=== PATIENT | female | born 2000 | race Caucasian/White ===

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

== ENCOUNTER 2022-03-27 14:02 | Outpatient (CLI) | payer OTHER, SELFPAY ==
--- NOTE | ~2022-03-27 | US_ITS ---
EXAMINATION: US pelvic complete w TV DATE: 03/27/2022 15:04 INDICATION: Vaginal bleeding Comparison:No prior studies for comparison. TECHNIQUE: Multiple transabdominal and endovaginal sonographic images of the pelvis performed. FINDINGS: The uterus measures 5.9 x 4 x 2.6 cm. The endometrial complex measures 0.45 cm. No evidence for intrauterine . There are nabothian cysts. The right ovary measures 2.6 x 1.2 x 1.9 cm and the left ovary measures 2.3 x 1.6 x 0.9 cm. There ar e small follicles in each ovary. Normal doppler signal in both ovaries. There is no free fluid in the pelvis. There are no abnormal masses seen on either side. IMPRESSION: 1. Unremarkable pelvic ultrasound. No evidence for intrauterine . Recommend follow-up with q uantitative beta-hCG levels and ultrasound as clinically indicated. Reviewed, dictated and finalized at location A. IMPRESSION: 1. Unremarkable pelvic ultrasound. No evidence for intrauterine . Fausto mmend follow-up with quantitative beta-hCG levels and ultrasound as clinically indicated.
[2022-03-27 14:27] LABS: Basophils Absolute Auto 0.04 K/mm3 (0.00-0.10); Basophils Percent Auto 0.6 % (0.0-1.0); Eosinophils Absolute Auto 0.06 K/mm3 (0.02-0.50); Eosinophils Percent Auto 0.8 % (1.0-6.0); Hematocrit 39.7 % (35.0-49.0); Hemoglobin 12.9 g/dL (12.0-15.0); Immature Granulocyte Absolute 0.02 K/mm3 (0.00-0.00); Immature Granulocyte Percent A 0.3 % (0.0-0.0); Lymphocytes Absolute Auto 1.79 K/mm3 (1.10-4.50); Lymphocytes Percent Auto 25.1 % (18.0-42.0); Mean Corpuscular HGB Conc 32.5 g/dL (32.0-36.0); Mean Corpuscular Hemoglobin 28.7 pg (27.0-31.0); Mean Corpuscular Volume 88.2 fL (78.0-102.0); Mean Platelet Volume 10.6 fl (9.2-11.8); Monocytes Absolute Auto 0.44 K/mm3 (0.10-0.90); Monocytes Percent Auto 6.2 % (2.0-11.0); Neutrophils Absolute Auto 4.8 K/mm3 (1.7-7.2); Platelet Count Result 357 K/mm3 (150-420); Red Cell Distribution Width 12.6 % (11.6-14.4); White Blood Count 7.1 K/mm3 (4.8-10.8)
[2022-03-27 14:51] LABS: Alanine Aminotransferase 12 U/L (14-59); Albumin Level 4.1 g/dL (3.4-5.0); Alkaline Phosphatase 58 U/L (46-116); Anion Gap 10 mmol/L (8-16); Aspartate Amino Transferase 14 U/L (15-37); Bilirubin,Total 0.5 mg/dL (0.00-1.00); Blood Urea Nitrogen 14 mg/dL (7-18); Calcium 8.9 mg/dL (8.5-10.1); Carbon Dioxide 25 mmol/L (21-32); Chloride 103 mmol/L (98-108); Estimated Glomerular Filt Rate > 60; Glucose 114 mg/dL (70-99); Osmolality Calculated 287 mOsm/kg (285-295); Sodium 138 mmol/L (136-145); Total Protein 7.9 g/dL (6.4-8.2)
== END 2022-03-27 14:03 | disposition home or self-care (01) ==
LOC: CHSIMG 14:05
PROVIDERS: PCP Internal Medicine; Visit Provider Nurse Practitioner Family
DX: N91.2 Amenorrhea, unspecified (principal); Z32.01 Encounter for pregnancy test, result positive; N93.9 Abnormal uterine and vaginal bleeding, unspecified
CPT/HCPCS: 36415; 76830; 76856; 80053; 84702; 85025; 86850; 86900; 86901

== ENCOUNTER 2022-04-02 15:25 | Outpatient (CLI) | payer OTHER, SELFPAY | END 2022-04-02 15:26 | disposition home or self-care (01) | PROVIDERS: PCP Internal Medicine; Visit Provider Obstetrics & Gynecology | DX: O20.0 Threatened abortion (principal); Z3A.00 Weeks of gestation of pregnancy not specified | CPT/HCPCS: 36415; 84702 ==

== ENCOUNTER 2022-04-04 09:31 | Outpatient (CLI) | payer OTHER, SELFPAY | END 2022-04-04 09:32 | disposition home or self-care (01) | PROVIDERS: PCP Internal Medicine; Visit Provider Obstetrics & Gynecology | DX: O20.0 Threatened abortion (principal) | CPT/HCPCS: 36415; 84702 ==

== ENCOUNTER 2022-04-06 14:40 | Emergency (ER) | payer OTHER, SELFPAY ==
--- NOTE | ~2022-04-06 | US_ITS ---
US OB <=14 wk fetus w TV 04/06/2022 17:55 Indication: Vaginal bleeding. Possible 6 week . Procedure: Realtime pelvic ultrasound utilizing transabdominal and transvaginal ultrasound Comparison: 03/27/2022 Findings: Uterus measures 7.1 x 3.1 x 4.1 cm. No definitive intrauterine gestational sac is identifie d. There is fluid in the endometrium which contains debris. No definite yolk sac or fluid the renal p ole is seen. The ovaries are unremarkable. Right ovary measures 3.6 x 1.4 x 1.5 cm. Left ovary measur es 2.7 x 1.2 x 1.2 cm. Endometrium is thickened. No free fluid in the pelvis. There is a small hypoec hoic structure at the fundus of the uterus measuring up to 1.3 cm, possibly a fibroid. Impression: 1: Fluid and debris containing focally in the endometrium without definitive gestational sac, yolk sa c or pole. Differential diagnosis includes very early intrauterine , failed and ectopic . Recommend follow-up with serial quantitative beta-hCG levels and ultrasound as clinically indicated. Reviewed, dictated and finalized at location A. Impression: 1: Fluid and debris containing focally in the endometrium without definitive ge stational sac, yolk sac or pole. Differential diagnosis includes very ear ly intrauterine , failed and ectopic . Recommend fo llow-up with serial quantitative beta-hCG levels and ultrasound as clinically i ndicated.
[2022-04-06 14:43] VITALS: BP 133/68; PULSE 99; RESP 16; TEMP 36.8; O2SAT 100
[2022-04-06 14:51] VITALS: O2SAT 100
[2022-04-06 14:52] VITALS: BP 139/62; O2SAT 100
[2022-04-06 14:56] VITALS: BP 139/62; PULSE 92; RESP 15; O2SAT 100
[2022-04-06 15:20] LABS: Basophils Percent Auto 0.4 % (0.2-1.2); Eosinophils Absolute Auto 0.1 K/mm3 (0-0.3); Eosinophils Percent Auto 1.3 % (0-4.4); Hematocrit 35.2 % (37.0-47.0); Hemoglobin 11.5 g/dL (12.0-15.0); Immature Granulocyte Absolute 0.02 K/mm3 (0.00-0.031); Immature Granulocyte Percent A 0.3 % (0-0.5); Lymphocytes Absolute Auto 2.15 K/mm3 (0.9-3.2); Lymphocytes Percent Auto 32.1 % (18.3-44.2); Mean Corpuscular HGB Conc 32.7 g/dl (32-36); Mean Corpuscular Hemoglobin 28.8 pg (26-34); Mean Corpuscular Volume 88.2 fl (80-100); Mean Platelet Volume 10.7 fl (7.4-10.4); Monocytes Absolute Auto 0.4 K/mm3 (0.1-0.6); Monocytes Percent Auto 6.3 % (2.6-8.5); Neutrophils Percent Auto 59.6 % (45.5-73.1); Platelet Count Result 318 k/mm3 (150-375); Red Blood Count 3.99 M/mm3 (4.2-5.4); Red Cell Distribution Width 12.9 % (11.5-14.5); White Blood Count 6.7 K/mm3 (4.5-10.0)
[2022-04-06 15:33] LABS: Appearance Urine Clear (Clear); Bilirubin Urine Negative (Negative); Blood Urine 3+ (Negative); Color Urine Yellow (Yellow); Glucose Urine UA Negative (Negative); Ketones Urine Trace mg/dL (Negative); Leukocyte Esterase Ur 1+ LEU/UL (Negative); Nitrate Urine Negative (Negative); Protein Urine Negative (Negative); Specific Grav Ur 1.015 (1.001-1.035); Urobilinogen Urine 0.2 mg/dL (<2.0); pH Urine 6.5 (5.0-9.0)
[2022-04-06 15:35] LABS: Alanine Aminotransferase 16 U/L (6-35); Albumin Level 4.4 g/dL (3.5-5.1); Alkaline Phosphatase 55 U/L (38-126); Anion Gap 6 mmol/L (8-16); Aspartate Amino Transferase 24 U/L (14-36); Bilirubin,Total 0.5 mg/dL (0.2-1.3); Blood Urea Nitrogen 9 mg/dL (7-17); Calcium 8.7 mg/dL (8.4-10.2); Carbon Dioxide 23 mmol/L (22-30); Chloride 106 mmol/L (98-107); Estimated CRCL calculation 82 ml/min; Estimated Glomerular Filt Rate > 60; Glucose 91 mg/dL (65-110); Potassium 3.8 mmol/L (3.4-5.0); Sodium 135 mmol/L (137-145)
[2022-04-06 15:38] LABS: Bacteria Urine Trace /hpf; Squamous Epithelial Cell Urine Occasional /hpf (Few)
[2022-04-06 15:39] LABS: Add Urine Microscopic? YES
--- NOTE | 2022-04-06 15:56 | ED.PREGNANCY ---
HPI - General Chief complaint: Vaginal Bleeding <Meenu Liao PA-C - Last Filed: 04/06/22 19:00> Stated complaint: 6-7 weeks preg and bleeding <JURGEN Cota Last Filed: 04/06/22 19:00> Time Seen by Provider: 04/06/22 14:55 <JURGEN Cota Last Filed: 04/06/22 19:00> Source: patient <JURGEN Cota Last Filed: 04/06/22 19:00> Mode of arrival: ambulatory <JURGEN Cota Last Filed: 04/06/22 19:00> Limitations: no limitations <JURGEN Cota Last Filed: 04/06/22 19:00> History of Present Illness HPI Narrative: Patient is a 21 y/o female who presents to the ED with c/o vaginal bleeding. Patient is and currently approx 5-6 weeks gestation based on LNMP. She has been having issues with intermittent vaginal spotting over the last 2 weeks. She was seen at [place] ED on 03/27 at which point her beta hCG was 120. Pelvic ultrasound did not reveal any intrauterine findings. Patient was seen at [facility] ED in [facility] on 03/31 and had another ultrasound performed. She reports they did see an intrauterine yolk sac but no pole yet. Per records, beta-hCG on 04/02 was 1299 and 2577 on the 13. Patient reports having increased vaginal bleeding today, with clots, which prompted her presentation to the ED. She has not seen her [facility] yet but has an appointment with Dr. Levy on 04/16. She has had some lower abdominal cramping, but no significant pain. Nausea but no vomiting. No fevers, chills, urinary symptoms. <JURGEN Cota Last Filed: 04/06/22 19:00> Related Data Home medications: Home Medications Medication Instructions Recorded Confirmed vits no.130-ferrous fum 1 tablet DAILY 04/06/22 04/06/22 27 mg iron-folic acid 800 mcg tablet ( Vitamin) <JURGEN Cota Last Filed: 04/06/22 19:00> Allergies/Adverse reactions: Allergies Allergy/AdvReac Type Severity Reaction Status Date / Time No Known Allergies Allergy Verified 04/06/22 15:02 <Meenu Liao PA-C - Last Filed: 04/06/22 19:00> Review of Systems Review of Systems: CONSTITUTIONAL: Denies fever, chills, or sweats. CARDIOVASCULAR: Denies chest pain. RESPIRATORY: Denies dyspnea. GASTROINTESTINAL: Reports lower ABD cramping, nausea. Denies vomiting, or diarrhea. GENITOURINARY: Reports vaginal bleeding w/ clots. Denies dysuria or hematuria. SKIN: Denies rash or itching. MUSCULOSKELETAL: Denies back pain. <Meenu Liao PA-C - Last Filed: 04/06/22 19:00> All systems reviewed & are unremarkable except as noted in HPI and below <Meenu Liao PA-C - Last Filed: 04/06/22 19:00> [facility] Past Medical History Medical History: Medical History (Updated 04/06/22 @ 18:41 by Meenu Liao PA-C) No pertinent past medical history <Meenu Liao PA-C - Last Filed: 04/06/22 19:00> Surgical History Surgical History: Surgical History (Updated 04/06/22 @ 16:08 by Meenu Liao PA-C) No pertinent past surgical history <Meenu Liao PA-C - Last Filed: 04/06/22 19:00> Social History Social History: Social History (Updated 04/06/22 @ 16:08 by Meenu Liao PA-C) Smoking status: Never smoker <Meenu Liao PA-C - Last Filed: 04/06/22 19:00> Exam Narrative: GENERAL: Well appearing, well-nourished, non-toxic, in no acute distress. HEAD: Normocephalic, atraumatic. NECK: Supple. No adenopathy, no masses. RESPIRATORY: Airway patent, respirations nonlabored. Clear to auscultation bilaterally, no rales, rhonchi, wheezing. CARDIOVASCULAR: Regular rate and rhythm without murmurs, rubs, or gallops. Peripheral pulses 2+ and equal bilaterally. ABDOMINAL: Soft, no significant tenderness to palpation, nondistended, no hepatosplenomegaly. Normoactive BS. PELVIC: Normal external genitalia. Dark red bleeding present with several clots in vaginal vault. No pooling of blood or hemorrhaging. Os does n
--- NOTE | 2022-04-06 17:35 | PC.NURSE ---
Pt off floor to radiology.
[2022-04-06 19:28] VITALS: PULSE 71; RESP 18; O2SAT 100
== END 2022-04-06 19:27 | disposition home or self-care (01) ==
PROVIDERS: Physician Assistant; Emergency Provider Emergency Medicine; PCP Internal Medicine
DX: O20.0 Threatened abortion (principal); O26.891 Other specified pregnancy related conditions, first trimester; R82.71 Bacteriuria; Z3A.01 Less than 8 weeks gestation of pregnancy
CPT/HCPCS: 36415; 76801; 76817; 80053; 81001; 84702; 85025; 85461; 87086; 99284

== ENCOUNTER 2022-04-09 14:31 | Outpatient (CLI) | payer OTHER, SELFPAY ==
[2022-04-09 15:23] LABS: Beta HCG Quantitative 647.89 mIU/ML
== END 2022-04-09 14:32 | disposition home or self-care (01) ==
LOC: ANHLAB 14:35
PROVIDERS: PCP Internal Medicine; Visit Provider Obstetrics & Gynecology
DX: O20.0 Threatened abortion (principal); Z3A.00 Weeks of gestation of pregnancy not specified
CPT/HCPCS: 36415; 84702

== ENCOUNTER 2022-06-14 15:27 | Outpatient (CLI) | payer OTHER, SELFPAY ==
[2022-06-14 15:57] LABS: Basophils Absolute Auto 0.03 K/mm3 (0.00-0.10); Basophils Percent Auto 0.4 % (0.0-1.0); Eosinophils Absolute Auto 0.06 K/mm3 (0.02-0.50); Eosinophils Percent Auto 0.9 % (1.0-6.0); Hematocrit 38.3 % (35.0-49.0); Hemoglobin 12.4 g/dL (12.0-15.0); Immature Granulocyte Absolute 0.02 K/mm3 (0.00-0.00); Immature Granulocyte Percent A 0.3 % (0.0-0.0); Lymphocytes Absolute Auto 2.17 K/mm3 (1.10-4.50); Mean Corpuscular HGB Conc 32.4 g/dL (32.0-36.0); Mean Corpuscular Hemoglobin 27.5 pg (27.0-31.0); Mean Corpuscular Volume 84.9 fL (78.0-102.0); Monocytes Absolute Auto 0.39 K/mm3 (0.10-0.90); Monocytes Percent Auto 5.6 % (2.0-11.0); Neutrophils Absolute Auto 4.3 K/mm3 (1.7-7.2); Neutrophils Percent Auto 61.8 % (50.0-70.0); Platelet Count Result 410 K/mm3 (150-420); Red Blood Count 4.51 M/mm3 (4.20-5.40)
[2022-06-14 16:04] LABS: Hemoglobin A1C 5.4 % (<5.7)
[2022-06-14 16:23] LABS: Alanine Aminotransferase 24 U/L (14-59); Albumin Level 4.2 g/dL (3.4-5.0); Alkaline Phosphatase 51 U/L (46-116); Anion Gap 11 mmol/L (8-16); Aspartate Amino Transferase 18 U/L (15-37); Bilirubin,Total 0.6 mg/dL (0.00-1.00); Blood Urea Nitrogen 11 mg/dL (7-18); Calcium 9.1 mg/dL (8.5-10.1); Carbon Dioxide 26 mmol/L (21-32); Chloride 100 mmol/L (98-108); Estimated Glomerular Filt Rate > 60; Free T4 Free Thyroxine 1.14 ng/dL (0.76-1.46); Glucose 91 mg/dL (70-99); Osmolality Calculated 283 mOsm/kg (285-295); Potassium 3.9 mmol/L (3.5-5.1); Sodium 137 mmol/L (136-145); Thyroid Stimulating Hormone 0.88 uIU/mL (0.36-3.74)
[2022-06-17 05:53] LABS: FSH 9.1 mIU/mL (***); LH 4.2 mIU/mL (***); Progesterone 5.3 ng/mL (***)
[2022-06-18 08:23] LABS: Testosterone Total 40 ng/dL (2-45)
[2022-06-21 23:08] LABS: Estrogen 463.5 pg/mL
== END 2022-06-14 15:28 | disposition home or self-care (01) ==
LOC: CHSLAB 15:30
PROVIDERS: PCP Internal Medicine; Visit Provider Nurse Practitioner Family
DX: N93.8 Other specified abnormal uterine and vaginal bleeding (principal); Z32.01 Encounter for pregnancy test, result positive
CPT/HCPCS: 36415; 80053; 82672; 83001; 83002; 83036; 84144; 84403; 84439; 84443; 84702; 85025; 86850; 86900; 86901

== ENCOUNTER 2022-06-16 12:49 | Outpatient (CLI) | payer OTHER, SELFPAY | END 2022-06-16 12:50 | disposition home or self-care (01) | LOC: CHSLAB 12:51 | PROVIDERS: PCP Internal Medicine; Visit Provider Nurse Practitioner Family | DX: N93.8 Other specified abnormal uterine and vaginal bleeding (principal) | CPT/HCPCS: 36415; 84702 ==

== ENCOUNTER 2022-06-19 09:01 | Outpatient (CLI) | payer OTHER, SELFPAY ==
[2022-06-19 10:19] LABS: Beta HCG Quantitative 121.77 mIU/ML
== END 2022-06-19 09:02 | disposition home or self-care (01) ==
LOC: ANHLAB 09:02
PROVIDERS: PCP Internal Medicine; Visit Provider Obstetrics & Gynecology
DX: O02.1 Missed abortion (principal); Z3A.00 Weeks of gestation of pregnancy not specified
CPT/HCPCS: 36415; 84702

== ENCOUNTER 2022-06-29 11:01 | Outpatient (CLI) | payer OTHER, SELFPAY ==
[2022-06-29 11:45] LABS: Beta HCG Quantitative 3.14 mIU/ML
== END 2022-06-29 11:02 | disposition home or self-care (01) ==
LOC: ANHLAB 11:03
PROVIDERS: PCP Internal Medicine; Visit Provider Obstetrics & Gynecology
DX: O02.1 Missed abortion (principal)
CPT/HCPCS: 36415; 84702

== ENCOUNTER 2023-06-06 03:19 | Inpatient (IN) | payer OTHER, SELFPAY ==
[2023-06-06] VITALS (174 sets, daily range): BP systolic 100–146; BP diastolic 45–89; PULSE 56–127; RESP 16–18; TEMP 36.7–37.4; O2SAT 85–100; BMI 33.8
--- NOTE | 2023-06-06 04:06 | LDADM ---
This patient, Gemma Cain, was admitted to Labor/Delivery/Recovery 106 on 06/06/23 at 03:19. Plans for labor, pain management and were discussed with patient. Patient/family oriented to hospital policies and general routines including ID bracelet, bed and alarms, visiting hours, pain management, procedures, bathroom and other care routines, personal items, smoking policy, room service/diet and guest tray routines, infant security routines, and visiting hours. Patient/Family are encouraged to report perceived risks to care and to ask questions if they do not understand what they are told or what they should do. See OBIX for further documentation.
[2023-06-06 04:12] LABS: Basophils Percent Auto 0.3 % (0.2-1.2); Eosinophils Absolute Auto 0.1 K/mm3 (0-0.3); Eosinophils Percent Auto 0.9 % (0-4.4); Hematocrit 28.5 % (37.0-47.0); Hemoglobin 8.8 g/dL (12.0-15.0); Immature Granulocyte Absolute 0.06 K/mm3 (0.00-0.031); Immature Granulocyte Percent A 0.6 % (0-0.5); Lymphocytes Absolute Auto 2.98 K/mm3 (0.9-3.2); Lymphocytes Percent Auto 27.9 % (18.3-44.2); Mean Corpuscular HGB Conc 30.9 g/dl (32-36); Mean Corpuscular Hemoglobin 22.8 pg (26-34); Mean Corpuscular Volume 73.8 fl (80-100); Mean Platelet Volume 11.3 fl (7.4-10.4); Monocytes Absolute Auto 0.6 K/mm3 (0.1-0.6); Monocytes Percent Auto 5.6 % (2.6-8.5); Neutrophils Absolute Auto 6.9 K/mm3 (1.3-6.7); Neutrophils Percent Auto 64.7 % (45.5-73.1); Platelet Count Result 339 k/mm3 (150-375); Red Blood Count 3.86 M/mm3 (4.2-5.4); Red Cell Distribution Width 15.9 % (11.5-14.5); White Blood Count 10.7 K/mm3 (4.5-10.0)
[2023-06-06] MEDS: LACTATED RINGERS 1,000 ML 125 ML IV CONT ×2 (05:13→06:14)
--- NOTE | 2023-06-06 06:23 | WPDANESEPP ---
Anes - Eval Pre Procedure Procedure: labor epidural Date/Time: 06/06/23 06:23 Pre Op Diagnosis: SROM Patient Data Age: 23 Gender: F Height: 1.54 m Weight: 80 kg Last Vital Signs Pulse 71 06/06/23 06:00 BP 131/73 06/06/23 06:00 O2 Del Method Room Air 06/06/23 04:11 Allergies Allergy/AdvReac Type Severity Reaction Status Date / Time No Known Allergies Allergy Verified 06/19/22 08:19 Home Medications Medication Instructions Recorded Confirmed Type prenat.vits,nora,ngy-numd-vbxjp 1 tablet PO DAILY 05/11/23 06/06/23 History Laboratory Tests 06/06/23 04:04 WBC 10.7 H K/mm3 (4.5-10.0) RBC 3.86 L M/mm3 (4.2-5.4) Hgb 8.8 L g/dL (12.0-15.0) Hct 28.5 L % (37.0-47.0) MCV 73.8 L fl (80-100) MCH 22.8 L pg (26-34) MCHC 30.9 L g/dl (32-36) RDW 15.9 H % (11.5-14.5) Plt Count 339 k/mm3 (150-375) MPV 11.3 H fl (7.4-10.4) Immature Gran % (Auto) 0.6 H % (0-0.5) Neut % (Auto) 64.7 % (45.5-73.1) Lymph % (Auto) 27.9 % (18.3-44.2) [place] % (Auto) 5.6 % (2.6-8.5) Eos % (Auto) 0.9 % (0-4.4) Baso % (Auto) 0.3 % (0.2-1.2) Lymph # (Auto) 2.98 K/mm3 (0.9-3.2) [place] # (Auto) 0.6 K/mm3 (0.1-0.6) Eos # (Auto) 0.1 K/mm3 (0-0.3) Baso # (Auto) 0.0 K/mm3 (0.0-0.1) Abs Immat Gran (auto) 0.06 H K/mm3 (0.00-0.031) Absolute Neuts (auto) 6.9 H K/mm3 (1.3-6.7) Absolute Nucleated RBC 0.0 K/mm3 (0.0-0.012) Nucleated RBC % 0.0 % (0.0-0.2) RPR Pending Blood Type B Positive Antibody Screen Negative Patient hx anesthesia problems: none Family hx anesthesia problems: none Results Review: All pre-operative results and documents have been reviewed as part of the pre-operative evaluation. [facility] Past Medical History Medical History (Updated 06/06/23 @ 06:24 by Pooja Ornelas CRNA) Anxiety and depression No pertinent past medical history Obese Surgical History Surgical History No pertinent past surgical history Family History Family History Father Heart disease Social History Social History Smoking status: Never smoker Alcohol intake: current Alcohol use details: 3-4 month Substance use: never Substance use type: does not use Lack of Transportation: No Lack of Food: Never True Current Housing: I Have Housing Concerned About Future Housing: No Difficulty Paying Gas/Electric Bills: No Difficulty Paying for Meds: No Currently Unemployed: No Education: High School Diploma/GED Difficulty w/ Childcare or Family Care: No Living arrangements: other Additional living arrangements comments: single Occupation/Education: occupation 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
[2023-06-06 08:35] LABS: Rapid Plasma Reagin Non-Reactive (NonReactive)
--- NOTE | 2023-06-06 11:47 | WPDOBADMIT ---
Obstetrics - Admit Note Admission Note: record reviewed. No pertinent additions to the history and/or any subsequent changes in the physical findings that are not consistent with the expected course of the were found. pt admitted after srom at home, hx Any-danlos syndrome, non vascular type, anticipate vaginal delivery Additions to the history and/or subsequent changes in the physical findings follow. None.
[2023-06-06] MEDS: OXYTOCIN 30 UNITS/NS 500 ML 30 UNITS/500 ML BAG IV CONT (12:00)
--- NOTE | 2023-06-06 15:43 | PM.OBPRVD ---
OB - Delivery Note Procedure Delivery date: 06/06/23 Procedure: Induction method: None Delivery augmentation: Pitocin Delivery monitor: External FHT and External Uterine Route of delivery: Laceration Description: Perineal - 2nd Degree Delivery repair: vicryl Specimen: No Quantitative Blood Loss (ml): 300 Anesthesia type: Epidural Disposition: Floor Baby Date of : 06/06/23 Time of : 15:26 Weeks of gestation at delivery: 39 gender: Male presentation: vertex position: Left Occiput Anterior Placenta delivery description: Spontaneous Cord Vessel Description: 3 Vessels, True Knot and Clamped/Cut score one minute: 7 score five minutes: 9 Narrative: head delivered slowly, unable to deliver the anterior shoulder, small amount of suprapubic pressure applied and easily delivered, the rest of the baby followed, baby moving all extremities. mother and baby skin to skin and in stable condition
[2023-06-06] MEDS: OXYTOCIN 30 UNITS/NS 500 ML 30 UNITS/500 ML BAG 125 UNITS IV CONT (16:05)
[2023-06-06] MEDS: IBUPROFEN 600 MG TABLET PO (18:42)
[2023-06-06] MEDS: WITCH HAZEL 40 PADS 1 PAD TOPICAL (18:43)
[2023-06-06] MEDS: BENZOCAINE 20% AER SPR (*SP) 56 GM CAN 1 SPRAY TOPICAL (18:43)
--- NOTE | 2023-06-06 19:00 | OBPPTRN ---
Patient transferred to post room #285 via wheelchair. Support person present. Oriented to unit, room, information board, rooming in, admission packet and security measures. Patient verbalizes understanding.
[2023-06-07] MEDS: ACETAMINOPHEN 325 MG TABLET 650 MG PO (05:09)
[2023-06-07] MEDS: IBUPROFEN 600 MG TABLET PO ×2 (05:10→16:52)
[2023-06-07 05:18] LABS: Hemoglobin 7.9 g/dL (12.0-15.0)
--- NOTE | 2023-06-07 07:27 | P.PNOB_ITS ---
OB - PN: Subj Subjective Date/time seen: 06/07/23 07:27 Patient comments: no complaints and pain well controlled baby status: doing well (does have fx clavicle) [place] feeding status: breast and bottle feeding OB - PN: Obj Data Labs 06/07/23 05:10 Labs: Laboratory Results - last 24 hr 06/06/23 06/07/23 04:04 05:10 Hgb 7.9 L Hct 26.0 L RPR Non-reactive OB - PN A/P Plan day: 1 Plan: routine care Comments: venofer for anemia circumcision today encouraged to put baby to breast if really wants to breastfeed Time Spent With Patient Time: Total time spent is greater than 50% in coordination of care (as documented) at patient's floor/unit and/or counseling patient: Time with patient: less than 15 minutes Exam Narrative: NAD abdomen soft, nontender, fundus firm below the umbilicus Extremities nontender, 1+ edema
--- NOTE | 2023-06-07 07:33 | WPDANLDPN2 ---
Anes-Prog Note L&D Date/Time: 06/07/23 07:33 Comfortable throughout: labor and delivery Neuraxial method: epidural Epidural/Spinal procedure site: clean & non-tender Neuro status: Neuro function grossly intact. Cardiovascular status: normal Respiratory status: normal Airway patency: baseline Mental status: baseline Post-Op hydration status: normal Vital Signs: Last Vital Signs Temp 37.0 C 06/06/23 23:25 Pulse 67 06/06/23 23:25 Resp 16 06/06/23 23:25 BP 116/55 L 06/06/23 23:25 Pulse Ox 95 06/06/23 19:00 O2 Del Method Room Air 06/06/23 19:00 Pain score (VAS): no complaints I/O: Intake & Output 06/06/23 06/06/23 06/07/23 15:59 23:59 07:59 Output Total 300 Balance -300 Post-procedural complaints: none Patient feedback: Patient satisfied with anesthetic care.
[2023-06-07 07:55] VITALS: BP 122/69; PULSE 72; RESP 18; TEMP 36.8; O2SAT 100
[2023-06-07] MEDS: MULTIVIT/MIN/PREN/FOL AC/IRON TABLET 1 TAB PO (08:54)
[2023-06-07 11:25] VITALS: BP 122/69; PULSE 71; RESP 18; TEMP 36.6; O2SAT 100
--- NOTE | 2023-06-07 14:27 | PC.NURSE ---
Primary RN reported to that mother is bottle feeding only.
[2023-06-07] MEDS: DOCUSATE SODIUM 100 MG CAPSULE PO (16:51)
[2023-06-07] MEDS: POLYSACCHARIDE IRON COMPLEX 150 MG CAPSULE PO (16:52)
[2023-06-07 20:00] VITALS: BP 103/50; PULSE 56; RESP 18; TEMP 36.8; O2SAT 100
--- NOTE | 2023-06-08 08:18 | PM.OBPNVD ---
OB - PN: Subj Subjective Date/time seen: 06/08/23 08:18 Patient comments: no complaints, pain well controlled and tolerating diet OB - PN: Obj Data Labs 06/07/23 05:10 OB - PN A/P Plan day: 2 Plan: routine care and discharge home Time Spent With Patient Time: Total time spent is greater than 50% in coordination of care (as documented) at patient's floor/unit and/or counseling patient: Exam Const: General: comfortable and no acute distress Resp: Effort & Inspection: normal respiratory effort Auscultation: no rales, no rhonchi and no wheezes Cardio: Rate: regular rate Heart sounds: no click, no murmurs and no rubs GI: GI Palp: Yes Soft to palpation and No Tenderness to palpation present (GI) Auscultation: normal bowel sounds Extrem: General: normal to inspection, no pedal edema and no calf tenderness
--- NOTE | 2023-06-08 08:20 | PM.OBDSVD ---
DS: Admitting Diagnosis Discharge Date 06/08/23 Admitting Diagnosis term DS: Discharge Diagnosis Discharge Diagnosis (1) Term delivered: Code(s): O80 - Encounter for full-term uncomplicated delivery Status: Acute OB - DS: Summary OB Procedures : None OB Procedures Intrapartum: Spontaneous Vag Delivery OB Procedures: : None Time Spent with Patient Time attestation: Total time spent providing and/or coordinating discharge services: Discharge Plan Discharge Attending physician on discharge: Laine Levy Discharging Clinician: Laine Levy Patient Disposition: Home, Self-Care Activity: pelvic rest Diet: regular Patient Instructions: Antibiotic Form Stand Alone Forms: General Discharge Information Follow-up/Referrals: Laine Levy MD [Physician] - Discharge Medications: Continued #2 Tablet 1 tablet PO DAILY Date of admission: 06/06/23 03:19 Primary Care Provider: Mere Thompson Admitting Provider: Kathy Patterson Attending physician on admission: Kathy Patterson Condition: Stable
[2023-06-08] MEDS: IBUPROFEN 600 MG TABLET PO (11:03)
[2023-06-08 11:04] VITALS: BP 126/74; PULSE 67; RESP 18; TEMP 36.9; O2SAT 99
[2023-06-08] MEDS: DOCUSATE SODIUM 100 MG CAPSULE PO (11:04)
[2023-06-08] MEDS: MULTIVIT/MIN/PREN/FOL AC/IRON TABLET 1 TAB PO (11:04)
[2023-06-08] MEDS: POLYSACCHARIDE IRON COMPLEX 150 MG CAPSULE PO (11:04)
--- NOTE | 2023-06-08 19:55 | PC.NURSE ---
[id number] Patient was not able to view the discharge video Mother & Baby Care, The First Two Weeks . The video was not available online. Patient was given the opportunity and encouraged to ask questions. Patient verbalized understanding of information shared and has been given the mother/baby guide for home reference.
[2023-06-10 10:25] VITALS: BP 137/67; PULSE 73; RESP 20; TEMP 36.6; O2SAT 98
== END 2023-06-08 14:50 | disposition home or self-care (01) | DRG 807 ==
LOC: ANHLDR 04:05 → ANHOB2 06-08 08:20 → ANHLDR 06-11 08:44 → ANHOB2 06-11 08:44
PROVIDERS: Advanced Practice Midwife; Admitting Provider Obstetrics & Gynecology; PCP Internal Medicine; Visit Provider Obstetrics & Gynecology
DX: O69.1XX0 Labor and delivery complicated by cord around neck, with compression, not applicable or unspecified (principal); Z37.0 Single live birth; Z3A.39 39 weeks gestation of pregnancy; O70.1 Second degree perineal laceration during delivery; O66.0 Obstructed labor due to shoulder dystocia
CPT/HCPCS: 36415; 84112; 85014; 85018; 85025; 86592; 86850; 86900; 86901; A9270; J2590; J2795; J7120